=== PATIENT | male | born 1995 | race Caucasian/White ===

== ENCOUNTER 2017-05-29 21:57 | Emergency (ER) | payer MEDICAID, SELFPAY ==
[~2017-05-29] VITALS: Ht 175.3 cm; Wt 71.8 kg
[2017-05-29] MEDS ORDERED: ACETAMINOPHEN 325 MG TAB PO ONE (22:30)
[2017-05-29] MEDS ORDERED: NS 1,000 ML IV ONE (22:45)
[2017-05-29] MEDS ORDERED: PENICILLIN G POTASSIUM IV 5 MU in D5W MINI-BAG PLUS 100 ML IV ONE (22:45)
[2017-05-29] MEDS ORDERED: CLINDAMYCIN 600 MG in APPROPRIATE DILUENT 1 EA IV ONE (23:00)
[2017-05-29 23:08] LABS: MEAN CORPUSCULAR HEMOGLOBIN 29.3 pg (27.0-33.0); MEAN CORPUSCULAR HGB CONC 33.9 g/dl (32.0-36.5); MEAN CORPUSCULAR VOLUME 86.3 fl (80.0-96.0); PLATELET COUNT, AUTOMATED 199 10^3/uL (150-450); RED CELL DISTRIBUTION WIDTH 13.3 % (11.5-14.5); WHITE BLOOD COUNT 12.9 10^3/uL (4.0-10.0)
[2017-05-29 23:14] LABS: ADD MANUAL DIFFER YES; DIFF SLIDE NUMBER 155; POSITIVE DIFF POS FLAG
[2017-05-29 23:35] LABS: BANDS 3 % (< 11)
[2017-05-29 23:36] LABS: HYPOCHROMASIA 1+
[2017-05-29] MEDS ORDERED: CLEO300C2 PO (23:51)
[2017-05-29] MEDS ORDERED: NORCOTAB PO (23:51)
[2017-05-30] MEDS ORDERED: NORCO 5/325MG TABLET (BULK FOR ED) PO ONE
[2017-05-30 00:05] VITALS: BP 133/77
== END 2017-05-30 01:01 | disposition home or self-care (01) ==
LOC: M ED 21:57
DX: J36 Peritonsillar abscess (principal); J35.1 Hypertrophy of tonsils

== ENCOUNTER 2018-07-03 17:43 | Emergency (ER) | payer SELFPAY ==
[2018-07-03] MEDS: NS 1,000 ML IV (19:55)
[2018-07-03] MEDS: KETOROLAC 30 MG/ML VIAL (J1885) IV (19:56)
[2018-07-03 20:15] LABS: BASO # 0.1 10^3/uL (0.0-0.2); BASO % 0.6 % (0.0-1.0); EOS # 1.1 10^3/uL (0.0-0.50); EOS % 7.9 % (0.0-3.0); HEMOGLOBIN 15.8 g/dl (13.5-17.5); IMMATURE GRANULOCYTE % 0.4 % (0-3.0); LYMPH # 2.8 10^3/uL (1.5-6.5); LYMPH % 19.7 % (24.0-44.0); MEAN CORPUSCULAR HEMOGLOBIN 29.2 pg (27.0-33.0); MEAN CORPUSCULAR HGB CONC 32.9 g/dl (32.0-36.5); MEAN CORPUSCULAR VOLUME 88.7 fl (80.0-96.0); MONO % 6.8 % (0.0-5.0); NEUTROPHILS # 9.1 10^3/uL (1.8-7.7); NEUTROPHILS % 64.6 % (36.0-66.0); PLATELET COUNT, AUTOMATED 253 10^3/uL (150-450); RED BLOOD COUNT 5.41 10^6/uL (4.30-6.10); RED CELL DISTRIBUTION WIDTH 12.9 % (11.5-14.5)
[2018-07-03 20:41] LABS: ANION GAP 5 MEQ/L (8-16); BLOOD UREA NITROGEN 10 MG/DL (7-18); CALCIUM LEVEL 9.4 MG/DL (8.5-10.1); CARBON DIOXIDE LEVEL 28 MEQ/L (21-32); CHLORIDE LEVEL 108 MEQ/L (98-107); CK-MB VALUE MASS < 1.0 NG/ML (<3.6); CPK CREATINE PHOSPHOKINASE 225 U/L (39-308); CREATININE FOR GFR 0.93 MG/DL (0.70-1.30); GLOMERULAR FILTRATION RATE > 60.0 (>60); GLUCOSE, FASTING 79 MG/DL (70-100); INFLUENZA A AMPLIFICATION NEGATIVE (NEGATIVE); INFLUENZA B AMPLIFICATION NEGATIVE (NEGATIVE); MB/CK RELATIVE INDEX 0.44 (< OR =4); POTASSIUM SERUM 4.4 MEQ/L (3.5-5.1); SODIUM LEVEL 141 MEQ/L (136-145); TROPONIN I < 0.02 NG/ML (< 0.10)
[2018-07-03] MEDS: METHOCARBAMOL 750 MG TAB PO (21:23)
== END 2018-07-03 21:28 | disposition home or self-care (01) ==
LOC: M ED 17:43
DX: M62.830 Muscle spasm of back (principal); R00.2 Palpitations
CPT/HCPCS: J1885

== ENCOUNTER 2018-12-13 19:33 | Emergency (ER) | payer MEDICAID, SELFPAY ==
[~2018-12-13] VITALS: Ht 177.8 cm; Wt 72.7 kg
[~2018-12-13 19:33] MED LIST: CLEO300C2 PO; HYDR-3715 PO; NAPR-837 PO; ROBA500T PO
[2018-12-13] MEDS ORDERED: PENI500T PO (20:56)
[2018-12-13] MEDS ORDERED: TRAM50TA2 PO (20:56)
[2018-12-13 20:59] VITALS: BP 123/74
[2018-12-13] MEDS ORDERED: PENICILLIN V POTASSIUM 500 MG TAB PO ONE (21:00)
[2018-12-13] MEDS ORDERED: traMADol 50 MG TAB (BULK 4 TAB ED) PO ONE (21:00)
== END 2018-12-13 21:46 | disposition home or self-care (01) ==
LOC: M ED 19:33
DX: K08.89 Other specified disorders of teeth and supporting structures (principal)

== ENCOUNTER 2019-04-25 17:16 | Emergency (ER) | payer MEDICAID ==
[~2019-04-25] VITALS: Ht 177.8 cm; Wt 68.0 kg
[~2019-04-25 17:16] MED LIST changes: +PENI500T PO; +TRAM50TA2 PO
[2019-04-25] MEDS ORDERED: CLEO300C2 PO (18:18)
[2019-04-25 18:25] VITALS: BP 121/74
[2019-04-25] MEDS ORDERED: CLINDAMYCIN 150 MG CAP PO ONE (18:30)
== END 2019-04-25 18:27 | disposition home or self-care (01) ==
LOC: M ED 17:16
DX: L03.113 Cellulitis of right upper limb (principal); K04.7 Periapical abscess without sinus; F17.200 Nicotine dependence, unspecified, uncomplicated

== ENCOUNTER 2019-09-12 15:43 | Emergency (ER) | payer MEDICAID, OTHER ==
[~2019-09-12] VITALS: Ht 175.3 cm; Wt 69.3 kg
[2019-09-12 16:20] LABS: BASO # 0.1 10^3/uL (0.0-0.2); BASO % 0.4 % (0.0-1.0); EOS % 6.6 % (0.0-3.0); HEMOGLOBIN 15.8 g/dl (13.5-17.5); LYMPH # 2.5 10^3/uL (1.5-5.0); MEAN CORPUSCULAR HEMOGLOBIN 29.5 pg (27.0-33.0); MEAN CORPUSCULAR HGB CONC 32.9 g/dl (32.0-36.5); MEAN CORPUSCULAR VOLUME 89.6 fl (80.0-96.0); MONO # 1.2 10^3/uL (0.0-0.8); MONO % 7.5 % (0.0-5.0); NEUTROPHILS # 10.9 10^3/uL (1.5-8.5); NEUTROPHILS % 69.2 % (36.0-66.0); PLATELET COUNT, AUTOMATED 213 10^3/uL (150-450); RED BLOOD COUNT 5.36 10^6/uL (4.30-6.10); WHITE BLOOD COUNT 15.7 10^3/uL (4.0-10.0)
[2019-09-12 16:51] LABS: ALBUMIN 4.6 GM/DL (3.2-5.2); ALT/SGPT 14 U/L (12-78); BILIRUBIN,DIRECT 0.3 MG/DL (0.0-0.2); BILIRUBIN,TOTAL 1.2 MG/DL (0.2-1.0); BLOOD UREA NITROGEN 13 MG/DL (7-18); CALCIUM LEVEL 9.4 MG/DL (8.5-10.1); CARBON DIOXIDE LEVEL 28 MEQ/L (21-32); CHLORIDE LEVEL 107 MEQ/L (98-107); CREATININE FOR GFR 1.04 MG/DL (0.70-1.30); GLOMERULAR FILTRATION RATE > 60.0 (>60); GLUCOSE, FASTING 87 MG/DL (70-100); LIPASE 97 U/L (73-393); POTASSIUM SERUM 4.5 MEQ/L (3.5-5.1); SODIUM LEVEL 141 MEQ/L (136-145); TOTAL PROTEIN 8.3 GM/DL (6.4-8.2)
[2019-09-12] MEDS ORDERED: ISOVUE-370 76% 100ML VIAL (Q9967) As Ordered ONE (17:43)
[2019-09-12] MEDS ORDERED: ONDANSETRON 4MG/2ML VIAL (J2405) IV ONE (17:45)
[2019-09-12] MEDS ORDERED: KETOROLAC 30 MG/ML VIAL (J1885) IV ONE (17:45)
[2019-09-12] MEDS ORDERED: NS 1,000 ML IV ONE (17:45)
--- NOTE | 2019-09-12 18:02 | REPVR ---
PROCEDURE INFORMATION: Exam: CT Abdomen And Pelvis With Contrast Exam date and time: 09/12/2019 5:47 PM Age: 24 years old Clinical indication: Abdominal pain; Generalized; Additional info: Abd pain TECHNIQUE: Imaging protocol: Computed tomography of the abdomen and pelvis with intravenous contrast. Radiation optimization: All CT scans at this facility use at least one of these dose optimization techniques: automated exposure control; mA and/or kV adjustment per patient size (includes targeted exams where dose is matched to clinical indication); or iterative reconstruction. Contrast material: ISOVUE 370; Contrast volume: 100 ml; Contrast route: IV; COMPARISON: No relevant prior studies available. FINDINGS: Liver: There is a diffuse decrease in hepatic parenchymal density, consistent with fatty infiltration. Gallbladder and bile ducts: Normal. No calcified stones. No ductal dilation. Pancreas: Normal. No ductal dilation. Spleen: Normal. No splenomegaly. Adrenals: Normal. No mass. Kidneys and ureters: Normal. No hydronephrosis. Stomach and bowel: Unremarkable. No obstruction. No mucosal thickening. Appendix: No evidence of appendicitis. Intraperitoneal space: Unremarkable. No free air. No significant fluid collection. Vasculature: Unremarkable. No abdominal aortic aneurysm. Lymph nodes: Unremarkable. No enlarged lymph nodes. Bladder: Unremarkable as visualized. Reproductive: Unremarkable as visualized. Bones/joints: Unremarkable. No acute fracture. Soft tissues: Unremarkable. IMPRESSION: There is a diffuse decrease in hepatic parenchymal density, consistent with fatty infiltration. Electronically signed by: Usman Jordan On 09/12/2019 18:02:30 PM
[2019-09-12] MEDS ORDERED: ONDA4TAB6 PO (18:41)
[2019-09-12 18:56] VITALS: BP 115/74
== END 2019-09-12 19:13 | disposition home or self-care (01) ==
LOC: M ED 15:43
DX: A08.4 Viral intestinal infection, unspecified (principal); F17.200 Nicotine dependence, unspecified, uncomplicated; F12.10 Cannabis abuse, uncomplicated
CPT/HCPCS: 74177; 80048; 80076; 83690; 85025; 96361; 96374; 96375; 99283; J1885; J2405; Q9967

== ENCOUNTER 2020-08-25 13:23 | Emergency (ER) | payer OTHER ==
[~2020-08-25] VITALS: Ht 177.8 cm; Wt 67.7 kg
[~2020-08-25 13:23] MED LIST changes: +ONDA4TAB6 PO
--- NOTE | 2020-08-25 14:43 | REP ---
INDICATION: L knee pain COMPARISON: None. TECHNIQUE: Five views left knee. FINDINGS: There is no evidence of acute fracture, dislocation, or intrinsic bone disease.Joint spaces are unremarkable. IMPRESSION: Negative left knee series. <Electronically signed by Timi Damon > 08/25/20 [id number]
--- OUTSIDE RECORDS SUMMARY | 2020-08-25 14:55 | CCD ---
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 Name Role Phone Raul, A Mckenna LINING CUTTER Unavailable Unavailable Hawthorne, A Mckenna LINING CUTTER Unavailable Unavailable Raul, A Mckenna LINING CUTTER Unavailable Unavailable Raul, A Mckenna LINING CUTTER Unavailable Unavailable Hawthorne, A Mckenna LINING CUTTER Unavailable Unavailable Hawthorne, A Mckenna LINING CUTTER Unavailable Unavailable Hawthorne, A Mckenna LINING CUTTER Unavailable Unavailable Raul, A Mckenna LINING CUTTER Unavailable Unavailable Raul, A Mckenna LINING CUTTER Unavailable Unavailable Raul, A Mckenna LINING CUTTER Unavailable Unavailable Hawthorne, A Mckenna LINING CUTTER Unavailable Unavailable Hawthorne, A Mckenna LINING CUTTER Unavailable Unavailable Hawthorne, A Mckenna LINING CUTTER Unavailable Unavailable Hawthorne, A Mckenna LINING CUTTER Unavailable Unavailable Hawthorne, A Mckenna LINING CUTTER Unavailable Unavailable Raul, A Mckenna LINING CUTTER Unavailable Unavailable Raul, A Mckenna LINING CUTTER Unavailable Unavailable Raul, A Mckenna LINING CUTTER Unavailable Unavailable Raul, A Mckenna LINING CUTTER Unavailable Unavailable Raul, A Mckenna LINING CUTTER Unavailable Unavailable Raul, A Mckenna LINING CUTTER Unavailable Unavailable Raul, A Mckenna LINING CUTTER Unavailable Unavailable Raul, A Mckenna LINING CUTTER Unavailable Unavailable Raul, A Mckenna LINING CUTTER Unavailable Unavailable Raul, A Mckenna LINING CUTTER Unavailable Unavailable Raul, A Mckenna LINING CUTTER Unavailable Unavailable Raul, A Mckenna LINING CUTTER Unavailable Unavailable Raul, Mckenna LINING CUTTER LINING CUTTER Unavailable Unavailable Re-disclosure Warning The records that you are about to access may contain information from federally-assisted alcohol or drug abuse programs. If such information is present, then the following federally mandated warning applies: This information has been disclosed to you from records protected by federal confidentiality rules (42 CFR part 2). The federal rules prohibit you from making any further disclosure of this information unless further disclosure is expressly permitted by the written consent of the person to whom it pertains or as otherwise permitted by 42 CFR part 2. A general authorization for the release of medical or other information is NOT sufficient for this purpose. The Federal rules restrict any use of the information to criminally investigate or prosecute any alcohol or drug abuse patient.The records that you are about to access may contain highly sensitive health information, the redisclosure of which is protected by Article 27-F of the [facility] Public Health law. If you continue you may have access to information: Regarding HIV / AIDS; Provided by facilities licensed or operated by the [facility] Office of Mental Health; or Provided by the [facility] Office for People With Developmental Disabilities. If such information is present, then the following [facility] mandated warning applies: This information has been disclosed to you from confidential records which are protected by state law. State law prohibits you from making any further disclosure of this information without the specific written consent of the person to whom it pertains, or as otherwise permitted by law. Any unauthorized further disclosure in violation of state law may result in a fine or fci sentence or both. A general authorization for the release of medical or other information is NOT sufficient authorization for further disc losure. Encounters Encounter Providers Location Date Indications Data Source(s ) Outpatient Attender: Mckenna MAYSP ALL 01/22/2020 10:2 7:00 AM EDT [facility] Outpatient Attender: MELBA [facility] 01/21/2020 03:2 3:01 PM EDT [facility] Outpatient 09/19/2019 09:41:00 AM [facility] Insurance Providers Payer name Policy type / Coverage type Policy ID Covered republican ID Covered republican's relationship to em Policy Em Plan Information CHRIS [id number] SP [id number] SELF PAY ONLY [id number] SP [id number] MEDICAID M [id number] MEDICAID [id number] SP [id number] [facility]) O [id number] S [id number] [employer] MCDO [id number] SP [id number] SELF PAY UNAVAILABLE UNAVAILA BLE [facility] MEDICAID [facility] HMO [id number] S [id number] SELF PAY SP [id number] S [id number] Problems, Conditions, and Diagnoses Code Display Name Description Problem Type Effective Dates Data Source(s) 521.03 DENTAL CARIES EXTENDING INTO PULP DENTAL CARIES EXTEND ING INTO PULP 01/21/2020 03:22:22 PM EDT [facility] Results ID Date Data Source [id number] 01/21/2020 12:41:13 PM EDT [facility] Current Problems: DENTAL CARIES EXTENDIN G INTO PULP (ICD-521.03) (FTX90-U13.63) Dental Chart: Procedures:Type - CDT Code - Description B - (D0330) Panoramic film (Performed by Mariella Tadeo DMD) B - (D0140) Limited oral evaluation - problem focused on Tooth # 17 (Performed by Mariella Tadeo DMD) B - (D1999) Unspecified preventive procedure, by report on Tooth # 17 (Performed by Mariella Tadeo DMD) Treatments:Type - CDT Code - Description T - (D7140) Extraction, erupted tooth or exposed root (elevation and/or forceps removal) on Tooth # 17 (Performed by Mariella Tadeo DMD) T - (D7140) Extraction, erupted tooth or exposed root (elevation and/or forceps removal) on Tooth # 1 (Performed by Mariella Tadeo DMD) T - (D7140) Extraction, erupted tooth or exposed root (elevation and/or forceps removal) on Tooth # 15 (Performed by Mariella Tadeo DMD) T - (D7140) Extraction, erupted tooth or exposed root (elevation and/or forceps removal) on Tooth # 16 (Performed by Mariella Tadeo DMD) T - (D7140) Extraction, erupted tooth or exposed root (elevation and/or forceps removal) on Tooth # 32 (Performed by Mariella Tadeo DMD) T - (D7140) Extraction, erupted tooth or exposed root (elevation and/or forceps removal) on Tooth # 14 (Performed by Mariella Tadeo DMD) Chart Notes:maureen (Jan 21 2020 3:22PM): Additional PPE requirements due to COVID-19 in the dental setting, N95, surgical mask, hair covering, gown S: CC: "I have a broken wisdom tooth on the bottom left that is swollen and hurts all of the time. I broke it about five months ago and it is continuing to get worse. I used to see [facility], but they stopped taking my insurance. I have not seen them for about five years now."O: RMHx (- )per pt. with no known allergies. HPI: swelling for [address]:8. BP: 124/98 Panorex taken. Slight extra-oral swelling present on lower left. #17 is badly broken due to caries into the pulp. Sensitive to palpation. Endo Ice tested #14 and #15 with no response.A: DDS recommends to have all wisdom and #14 and #15 to be extracted by OS. Pt. did not want any antibiotics at this time and advised to use warm salt water rinse. DX: broken teeth due to caries into the pulp.P:refer to OS.Informed Pt about new pain management policy of the clinic regarding about narcotic,told pt to alternate Ibuprophen 600- 800mg and tylenol 500mg every 4 to 6 hrs for pain when needed. Assisted By: AM NV: cm p/eMariella Mcneal DMD by maureen (01/21/2020 3:22 PM): Tooth Notes and Watches: Assessment & Plan Problems:Added: DENTAL CARIES EXTENDING INTO PULP (ICD-521.03) (ICD10- K02.63)Allergies:No Known Allergies (updated 01/21/2020) Orders:Oral Surgery Referral [[id number]] Name Value Range Interpretation Code Description Data Breonna rce(s) Supporting Document(s) Procedure
[2020-08-25] MEDS ORDERED: ACETAMINOPHEN 500 MG TAB PO ONE (15:15)
--- NOTE | 2020-08-25 15:40 | REP ---
INDICATION: fall, positive LOC COMPARISON: 07/03/2018 TECHNIQUE: Axial noncontrast images from the skull base to the vertex with coronal reformations. This CT examination was performed using the following dose reduction techniques: Automated exposure control, adjustment of mA and/or kv according to the patient's size, and use of iterative reconstruction technique. FINDINGS: The ventricles, sulci, and cisterns are normal in position and appearance. Damon-white differentiation is maintained. No acute intracranial hemorrhage, mass/mass effect, pathology or trauma/injury. No evidence for acute infarction. No extra-axial fluid collection. Calvarium is intact. Paranasal sinuses and mastoid air cells are clear. IMPRESSION: Normal noncontrast head CT. No evidence for acute intracranial pathology or trauma/injury. <Electronically signed by Damion Child > 08/25/20 [id number]
--- NOTE | 2020-08-25 15:41 | REP ---
INDICATION: fall, positive LOC COMPARISON: None. TECHNIQUE: Axial noncontrast images from the skull base to the thoracic inlet with coronal and sagittal re-formations This CT examination was performed using the following dose reduction techniques: Automated exposure control, adjustment of mA and/or kv according to the patient's size, and use of iterative reconstruction technique. FINDINGS: Normal alignment and lordosis is maintained. Cervical vertebral bodies including transverse processes and spinous processes are intact and there is no evidence for acute fracture / compression injury or subluxation. Spinal canal is patent. Posterior elements are intact. Paravertebral soft tissues are normal. IMPRESSION: Normal noncontrast cervical spine CT. No evidence for acute pathology or trauma/injury. <Electronically signed by Damion Child > 08/25/20 [id number]
--- NOTE | 2020-08-25 15:54 | REP ---
INDICATION: fall, positive LOC. COMPARISON: None. TECHNIQUE: Axial noncontrast images through the left knee with coronal and sagittal reformations. FINDINGS: Extensive joint effusion and posttraumatic subcutaneous inflammatory stranding is appreciated. The muscular structures are relatively normal and without obvious hematoma or muscular injury identified. The osseous structures appear intact and without obvious acute fracture or current dislocation. IMPRESSION: Significant diffuse effusion and subcutaneous posttraumatic inflammatory stranding. No obvious acute fracture or dislocation identified. MRI should be considered for further investigation and possible soft tissue injuries as well as very subtle bony injury without cortical fracture. <Electronically signed by Damion Child > 08/25/20 [id number]
[2020-08-25 16:10] VITALS: BP 142/77
--- NOTE | 2020-08-27 14:59 | ED PDOC ---
Post-Departure Follow-Up dr vega and gustavog faxed formal report of ct knee for fu John Douglass MD Aug 27, 2020 14:59
== END 2020-08-25 16:27 | disposition home or self-care (01) ==
LOC: M ED 13:23
DX: S89.92XA Unspecified injury of left lower leg, initial encounter (principal); X50.1XXA Overexertion from prolonged static or awkward postures, initial encounter; Y92.9 Unspecified place or not applicable; Y93.23 Activity, snow (alpine) (downhill) skiing, snowboarding, sledding, tobogganing and snow tubing; Y99.9 Unspecified external cause status; F17.200 Nicotine dependence, unspecified, uncomplicated; F12.10 Cannabis abuse, uncomplicated

== ENCOUNTER 2020-12-08 11:41 | Emergency (ER) | payer OTHER ==
[~2020-12-08] VITALS: Ht 175.3 cm; Wt 67.7 kg
[2020-12-08 11:42] VITALS: BP 113/66
[2020-12-08] MEDS ORDERED: DOXY100C37 PO (12:53)
[2020-12-08] MEDS ORDERED: LIDOCAINE 1% SDV 5ML VIAL DILUENT ONE (12:55)
[2020-12-08] MEDS ORDERED: DOXYCYCLINE HYCLATE 100MG TABLET PO ONE (12:55)
[2020-12-08] MEDS ORDERED: cefTRIAXone 500MG VIAL (J0696 PER 250MG) IM ONE (12:55)
[2020-12-08 13:34] LABS: CHLAMYDIA DNA AMPLIFICATION NEGATIVE (NEGATIVE); GC DNA AMPLIFICATION NEGATIVE (NEGATIVE)
== END 2020-12-08 13:32 | disposition home or self-care (01) ==
LOC: M ED 11:41
DX: R30.0 Dysuria (principal); F17.200 Nicotine dependence, unspecified, uncomplicated
CPT/HCPCS: 81001; 87491; 87591; 96372; 99283; J0696

== ENCOUNTER 2021-01-16 11:47 | Emergency (ER) | payer OTHER ==
[~2021-01-16] VITALS: Ht 177.8 cm; Wt 75.0 kg
[~2021-01-16 11:47] MED LIST changes: +DOXY100C37 PO
--- NOTE | 2021-01-16 12:29 | REP ---
INDICATION: trauma COMPARISON: None. TECHNIQUE: AP, lateral, bilateral oblique views left foot. FINDINGS: The osseous structures and joint spaces are intact and normal. There is no evidence for acute fracture or dislocation. Surrounding soft tissues are unremarkable. No subcutaneous emphysema or radiodense foreign body. IMPRESSION: . No acute fracture or dislocation. <Electronically signed by Damion Child > 01/16/21 [id number]
--- NOTE | 2021-01-16 13:43 | REP ---
INDICATION: trauma. COMPARISON: Plain films today. TECHNIQUE: Axial CT left foot performed with sagittal coronal reconstruction images. FINDINGS: No evidence of acute fracture, dislocation or intrinsic bone disease. No bone lesions are seen. Tiny accessory ossicle is seen at the anterior superior margin of the calcaneus. No gross soft tissue abnormality is seen. IMPRESSION: No acute fracture or dislocation. <Electronically signed by Timi Damon > 01/16/21 [id number]
[2021-01-16 14:38] VITALS: BP 127/71
== END 2021-01-16 14:39 | disposition home or self-care (01) ==
LOC: M ED 11:47
DX: S93.602A Unspecified sprain of left foot, initial encounter (principal); W51.XXXA Accidental striking against or bumped into by another person, initial encounter; Y92.39 Other specified sports and athletic area as the place of occurrence of the external cause; Y93.75 Activity, martial arts; Y99.8 Other external cause status; F17.200 Nicotine dependence, unspecified, uncomplicated

== ENCOUNTER 2023-03-14 20:07 | Emergency (ER) | payer OTHER ==
[~2023-03-14] VITALS: Ht 177.8 cm; Wt 66.2 kg
[2023-03-14 20:07] VITALS: BP 137/80; TEMP 97.9; O2SAT 99
[~2023-03-14 20:07] MED LIST changes: +DOXY-443 PO; -DOXY100C37 PO
== END 2023-03-15 01:44 | disposition left against medical advice (07) ==
LOC: M ED 20:07
DX: Z53.21 Procedure and treatment not carried out due to patient leaving prior to being seen by health care provider (principal)

== ENCOUNTER 2025-03-23 09:20 | Emergency (ER) | payer OTHER ==
[~2025-03-23] VITALS: Ht 177.8 cm; Wt 69.4 kg
[~2025-03-23 09:20] MED LIST changes: +DOXY-441 PO; -DOXY-443 PO; +ONDA-282 PO; -ONDA4TAB6 PO
[2025-03-23] MEDS ORDERED: HOME MED LIST COMPLETE! XX SCH (10:25)
[2025-03-23 11:05] VITALS: BP 123/77; TEMP 97.5; O2SAT 98
== END 2025-03-23 11:12 | disposition home or self-care (01) ==
LOC: M ED 09:20
DX: S80.01XA Contusion of right knee, initial encounter (principal); V03.10XA Pedestrian on foot injured in collision with car, pick-up truck or van in traffic accident, initial encounter; Y92.480 Sidewalk as the place of occurrence of the external cause; Y93.01 Activity, walking, marching and hiking; Y99.9 Unspecified external cause status

== ENCOUNTER 2025-04-26 14:24 | Emergency (ER) | payer OTHER ==
[~2025-04-26] VITALS: Ht 175.3 cm; Wt 67.8 kg
[2025-04-26 16:45] VITALS: BP 118/59
[2025-04-26 16:54] VITALS: O2SAT 98
[2025-04-26 16:59] VITALS: TEMP 98.3
== END 2025-04-26 17:17 | disposition home or self-care (01) ==
LOC: M ED 14:24
DX: S09.90XA Unspecified injury of head, initial encounter (principal); V13.0XXA Pedal cycle driver injured in collision with car, pick-up truck or van in nontraffic accident, initial encounter; F17.200 Nicotine dependence, unspecified, uncomplicated; J34.2 Deviated nasal septum; Y92.410 Unspecified street and highway as the place of occurrence of the external cause; Y93.55 Activity, bike riding; Y99.9 Unspecified external cause status